=== PATIENT | male | born 1945 | race Caucasian/White ===

== ENCOUNTER 2017-01-28 10:49 | Emergency (ER) | payer OTHER ==
[~2017-01-28] VITALS: Ht 180.3 cm; Wt 104.5 kg
[~2017-01-28 10:49] MED LIST: ALEVE220 M2 PO; AMOX TR-K CLV1 EAC4 PO; FLONASE16 G1 BOTH NARES; GLIPIZIDE10 MG PO; JANUVIA100 MG PO; LO-DOSE ASPIRIN81 M1 PO; MECLIZINE HCL25 MG PO; METFORMIN HCL1000 MG PO; PERCOCET 5/31 TABLET PO; PIOGLITAZONE HC30 MG PO; ZOFRAN4 MG PO
[2017-01-28] MEDS ORDERED: RANITIDINE HCL150 MG PO (12:19)
[2017-01-28] MEDS ORDERED: SPIRIVA RESPIMAT4 GM IH (12:20)
[2017-01-28] MEDS ORDERED: VENTOLIN HFA18 GM IH (12:20)
[2017-01-28] MEDS ORDERED: REPAGLINIDE1 MG PO (12:21)
[2017-01-28] MEDS ORDERED: JANUVIA100 MG PO ×2 (12:21→12:23)
[2017-01-28] MEDS ORDERED: FENOFIBRATE54 M1 PO (12:22)
[2017-01-28] MEDS ORDERED: NAPROXEN500 MG PO (12:40)
[2017-01-28] MEDS ORDERED: PREDNISONE20 MG PO (12:40)
[2017-01-28] MEDS ORDERED: FLEXERIL10 MG PO (12:40)
[2017-01-28] MEDS ORDERED: LIDODERM 5% P1 PATCH TD (12:40)
[2017-01-28 13:00] VITALS: BP 125/85
== END 2017-01-28 13:01 | disposition home or self-care (01) ==
LOC: EME 10:49 → EXP 10:49
DX: M54.31 Sciatica, right side (principal); Z79.82 Long term (current) use of aspirin; F17.200 Nicotine dependence, unspecified, uncomplicated
CPT/HCPCS: 73502; 99281; 99283